=== PATIENT | male | born 1970 | race American Indian/Alaskan Native ===

== ENCOUNTER 2021-11-09 14:44 | Emergency (ER) | payer OTHER, MEDICAID, SELFPAY ==
[2021-11-09 15:30] VITALS: BP 141/80; PULSE 77; RESP 15; TEMP 36.1; O2SAT 96; BMI 25.1
[2021-11-09 20:40] VITALS: BP 135/80; PULSE 66; O2SAT 99
--- NOTE | 2021-11-09 20:53 | ED.BACK ---
HPI - Back Pain/Injury General Chief Complaint: Back Pain/Injury Stated Complaint: pinched nerve in back Time Seen by Provider: 11/09/21 20:42 Source: patient History of Present Illness HPI Narrative: Patient is a 51-year-old male with chronic ongoing pain presents with left-sided back pain worse over last 1 and half days. He says he feels like has a pinched nerve. It hurts every time he moves. He has been taking ibuprofen without much relief. He occasionally gets sharp shooting pain down his leg. He has had serous injuries in the past and had a pelvis shattered. He took some of his sisters gabapentin without much relief. He denies any painful or frequent urination. No nausea or vomiting. Related Data Previous Rx's Medication Instructions Recorded cyclobenzaprine 5 mg tablet 5 mg PO TID PRN #10 tab 11/09/21 Allergies Allergy/AdvReac Type Severity Reaction Status Date / Time No Known Drug Allergies Allergy Verified 11/09/21 15:34 Review of Systems Review of Systems Narrative: GENERAL: Denies chills, fatigue, malaise, fever, sweats, travel HEENT: Denies sinus pain, ear pain, sore throat, difficulty swallowing, neck pain RESPIRATORY: Denies dyspnea, cough, wheezing, hemoptysis, sputum. CARDIOVASCULAR: Denies chest pain, palpitations, orthopnea, edema GASTROINTESTINAL: Denies nausea, vomiting, abdominal pain, diarrhea, constipation, melena. : Denies dysuria, frequency, incontinence, hematuria, urinary retention, flank pain. MUSCULOSKELETAL: See HPI SKIN: No rash, no erythema, no pruritus NEUROLOGIC: Denies weakness, dizziness, headache, numbness, change in speech, confusion PSYCHIATRIC: No concerning psychosocial issues. 12 point review of systems is negative except for those stated above and HPI Patient History Social History Smoking Status: Current every day smoker Smoking Status: Current every day smoker alcohol intake frequency: holidays/special occasions only Substance Use Type: marijuana Exam Initial Vital Signs Initial Vital Signs: Vital Signs Temperature 97.0 F L 11/09/21 15:30 Pulse Rate 77 11/09/21 15:30 Respiratory Rate 15 11/09/21 15:30 Blood Pressure 141/80 H 11/09/21 15:30 Pulse Oximetry 96 11/09/21 15:30 GENERAL: Alert 51-year-old male appears comfortable while resting in no acute distress. HEENT: Head atraumatic,EOMI, pupils reactive, face symmetric, moist mucous membranes CARDIOVASCULAR: Regular rate and rhythm without murmurs, rubs or gallops. RESPIRATORY: Breath sounds equal bilaterally, no wheezes rales or rhonchi. ABDOMEN: Soft, nontender. Normoactive bowel sounds all 4 quadrants. No guarding or rebound. BACK: Pinpoint tenderness left side reproduces bit and palpation EXTREMITIES: Normal range of motion, no clubbing or edema. Neurovascularly intact NEUROLOGICAL: Alert and oriented x4.Normal gait and speech. SKIN: Warm, dry, no laceration, no petechiae, no rashes or lesions. Course Orders Ordered: Discontinued Medications Cyclobenzaprine HCl (Cyclobenzaprine 10 Mg Prepack) 1 bottle MISC SEEINSTR ONE Stop: 11/09/21 20:53 Last Admin: 11/09/21 21:01 Dose: 1 bottle Documented by: RIC Ketorolac Tromethamine (Ketorolac 30 Mg/Ml Vial) 30 mg IM NOW ONE Stop: 11/09/21 20:53 Last Admin: 11/09/21 21:00 Dose: 30 mg Documented by: RIC Vital Signs Vital signs: Vital Signs - 8 hr 11/09/21 20:40 11/09/21 21:19 Pulse Rate 66 63 Respiratory Rate 18 Blood Pressure 135/80 129/80 Pulse Oximetry 99 100 MDM - Back Pain/Injury MDM Narrative Medical decision making narrative: At this time pain seems to be musculoskeletal in nature. It is definitely reproducible with palpation and hurts with movement. Unlikely to be kidney stone at this time. Patient has never been to this facility in the past. He is given Toradol and muscle relaxers for pain. Discharge Plan Departure Patient Disposition: Home Clinical Impression: Strain of lumbar region Instructions: DI for Low Back Pain Activity Restrictions/Additional Instructions: *You have been diagnosed with acute on chronic back *What to do: Heating pad, light stretches *Continue to take medications as directed Motrin 800 mg every 8 hours if needed for wffm-of-zdgldnyl Flexeril 5-10 mg every 8 hours for muscle spasm *Follow up with your primary care provider in 2-3 days or call [phone] *Return to ER if you should have increasing pain, changes in bowel or bladder habits or any new, worsening or concerning symptoms Prescriptions: New cyclobenzaprine 5 mg tablet 5 mg PO TID PRN (Reason: muscle spasm) Qty: 10 0RF Stand Alone Forms: Work Release Note
[2021-11-09] MEDS: KETOROLAC 30 MG/ML VIAL IM (21:00)
[2021-11-09] MEDS: CYCLOBENZAPRINE 10 MG PREPACK 1 BOTTLE MISC (21:01)
[2021-11-09 21:19] VITALS: BP 129/80; PULSE 63; RESP 18; O2SAT 100
== END 2021-11-09 21:24 | disposition home or self-care (01) ==
PROVIDERS: Emergency Provider Emergency Medicine
DX: S39.012A Strain of muscle, fascia and tendon of lower back, initial encounter (principal); F17.200 Nicotine dependence, unspecified, uncomplicated; X58.XXXA Exposure to other specified factors, initial encounter
CPT/HCPCS: 96372; 99283; J1885

== ENCOUNTER 2021-11-13 14:01 | Emergency (ER) | payer OTHER, MEDICAID, SELFPAY ==
[2021-11-13 14:18] VITALS: BP 135/78; PULSE 69; RESP 18; TEMP 36.9; O2SAT 99
--- NOTE | 2021-11-13 18:31 | ED.BACK ---
HPI - Back Pain/Injury <KYLEE De La Torre - Last Filed: 11/16/21 13:18> General Chief Complaint: Back Pain/Injury Stated Complaint: Back Pain Getting Worse Time Seen by Provider: 11/13/21 18:01 Source: patient History of Present Illness HPI Narrative: 51-year-old male presents to the emergency department with an exacerbation of his left-sided low back pain with right-sided sciatica. Patient has a history of the same, denies any loss of bowel or bladder, denies any urinary retention symptoms. He endorses that his sciatica is worse than it has been, he was seen 4 days ago and prescribed ibuprofen and Flexeril without much relief. Patient endorses that lidocaine patches are helpful that he currently does not have any. Patient also requesting a work note. Related Data Previous Rx's Medication Instructions Recorded cyclobenzaprine 5 mg tablet 5 mg PO TID PRN #10 tab 11/09/21 cyclobenzaprine 5 mg tablet 5 mg PO Q8H PRN #20 tab 11/13/21 lidocaine 4 % topical patch 1 patch TOPICAL DAILY PRN #10 ea 11/13/21 prednisone 50 mg tablet 50 mg PO DAILY 5 Days #5 tab 11/13/21 Allergies Allergy/AdvReac Type Severity Reaction Status Date / Time No Known Drug Allergies Allergy Verified 11/09/21 15:34 Review of Systems <KYLEE De La Torre - Last Filed: 11/16/21 13:18> Review of Systems Narrative: General: denies fever, chills Head/Neck: denies headache, neck pain Eyes: denies visual changes, eye pain Cardio: denies chest pain, palpitations Respiratory: denies shortness of breath, cough GI: denies abdominal pain, nausea, vomiting, or diarrhea : denies dysuria, hematuria MSK: denies joint pain, muscle weakness Skin: denies rash, itching Neuro: denies numbness, tingling Patient History <KYLEE De La Torre - Last Filed: 11/16/21 13:18> Social History Smoking Status: Current every day smoker Smoking Status: Current every day smoker alcohol intake frequency: holidays/special occasions only Substance Use Type: marijuana Exam <KYLEE De La Torre - Last Filed: 11/16/21 13:18> Initial Vital Signs Initial Vital Signs: Vital Signs Temperature 98.5 F 11/13/21 14:18 Pulse Rate 69 11/13/21 14:18 Respiratory Rate 18 11/13/21 14:18 Blood Pressure 135/78 11/13/21 14:18 Pulse Oximetry 99 11/13/21 14:18 <Mara Okeefe DO - Last Filed: 11/17/21 07:23> Initial Vital Signs Initial Vital Signs: Vital Signs Temperature 98.5 F 11/13/21 14:18 Pulse Rate 69 11/13/21 14:18 Respiratory Rate 18 11/13/21 14:18 Blood Pressure 135/78 11/13/21 14:18 Pulse Oximetry 99 11/13/21 14:18 Course <KYLEE De La Torre - Last Filed: 11/16/21 13:18> Orders Ordered: Discontinued Medications Cyclobenzaprine HCl (Cyclobenzaprine 10 Mg Tablet) 5 mg PO NOW ONE Stop: 11/13/21 18:25 Last Admin: 11/13/21 18:37 Dose: 5 mg Documented by: ALBERTO Ketorolac Tromethamine (Ketorolac 30 Mg/Ml Vial) 15 mg IM NOW ONE Stop: 11/13/21 18:25 Last Admin: 11/13/21 18:37 Dose: 15 mg Documented by: ALBERTO Prednisone (Prednisone 20 Mg Tablet) 40 mg PO NOW ONE Stop: 11/13/21 18:25 Last Admin: 11/13/21 18:37 Dose: 40 mg Documented by: ALBERTO Vital Signs Vital signs: Vital Signs - 8 hr 11/13/21 14:18 Temperature 98.5 F Pulse Rate 69 Respiratory Rate 18 Blood Pressure 135/78 Pulse Oximetry 99 <Mara Okeefe DO - Last Filed: 11/17/21 07:23> Orders Ordered: Discontinued Medications Cyclobenzaprine HCl (Cyclobenzaprine 10 Mg Tablet) 5 mg PO NOW ONE Stop: 11/13/21 18:25 Last Admin: 11/13/21 18:37 Dose: 5 mg Documented by: ALBERTO Ketorolac Tromethamine (Ketorolac 30 Mg/Ml Vial) 15 mg IM NOW ONE Stop: 11/13/21 18:25 Last Admin: 11/13/21 18:37 Dose: 15 mg Documented by: ALBERTO Prednisone (Prednisone 20 Mg Tablet) 40 mg PO NOW ONE Stop: 11/13/21 18:25 Last Admin: 11/13/21 18:37 Dose: 40 mg Documented by: ALBERTO Vital Signs Vital signs: Vital Signs - 8 hr 11/13/21 14:18 Temperature 98.5 F Pulse Rate 69 Respiratory Rate 18 Blood Pressure 135/78 Pulse Oximetry 99 [facility] - Back Pain/Injury <KYLEE De La Torre - Last Filed: 11/16/21 13:18> [facility] Narrative Medical decision making narrative: 51-year-old male presents to the emergency department complaining of low back pain exacerbation and history of same. Symptoms are exacerbated with right leg lift in his low back. Patient recently was prescribed ibuprofen and Flexeril and his symptoms improved for a couple days he reports that helped for a little bit but now it is worse as it was before. Patient did not have any steroids. No new trauma, Multiple etiologies of back pain considered including; Epidural abscess, cauda equina, mass occupying lesion, and other considered but less likely as patient does not have any urinary retention, loss of bowel or bladder, numbness or tingling in his extremities that is ongoing. Patient has right-sided sciatica symptoms intermittently. Strict return precautions advised, patient was referred to Orthopedic Spine, understands to take his steroids, lidocaine patches, for muscle relaxers and ibuprofen as needed for his symptoms. He was given a work note. Patient is appropriate and amenable to discharge home. Vital signs are stable on repeat examination is unremarkable. Patient has been informed of results. Patient has been given strict return to ER precautions for any new or worsening symptoms. Patient understands to follow up closely with outpatient providers as instructed. Patient understands plan and agrees to discharge home. All questions and concerns answered at this time. Discharge Plan Departure Patient Disposition: Home Clinical Impression: Low back pain with right-sided sciatica Instructions: DI for Back Pain With Sciatica, DI for Back Spasm Activity Restrictions/Additional Instructions: *You have been diagnosed with left-sided low back pain with right-sided sciatica. Please follow-up with orthopedics if this is surgical problem. Please continue to take ibuprofen every 6-8 hours as needed for pain, please do not take anymore of that today. I sent some prescriptions to [facility] in [place], a getting muscle relaxer, steroids, lidocaine patches. I hope you feel better soon. If you have any loss of bowel or bladder, inability to urinate, numbness or tingling in your lower extremities please return to the emergency department. *What to do: *Please continue to take your regular medications as directed. [ x] New medication prescriptions sent to your pharmacy: [[facility] ] [ ] New medication written as a paper prescription [ ] No new medications given *Please follow up with your primary care provider in 2-3 days, call for an appointment. Let them know you were seen in the Emergency Department and that we ask that you be seen in follow up. We will electronically transmit a record of today's note if your PCP is in our system *If you do not have a primary care provider please contact the [facility] Resource line at [phone]. They will ask some questions about your medical history and help get you set up with a doctor in the community. *Return to Emergency Department if you should have any new, worsening or concerning symptoms, such as [fever greater than 101F, chills, worsening pain, persistent vomiting or other bothersome symptoms] Prescriptions: New cyclobenzaprine 5 mg tablet 5 mg PO Q8H PRN (Reason: muscle spasm) Qty: 20 0RF prednisone 50 mg tablet 50 mg PO DAILY 5 Days Qty: 5 0RF lidocaine 4 % adhesive patch,medicated 1 patch topical DAILY PRN (Reason: pain) Qty: 10 0RF No Action cyclobenzaprine 5 mg tablet 5 mg PO TID PRN (Reason: muscle spasm) Qty: 10 0RF Referrals: Tia Vivar MD [Physician] - 7-10 days Stand Alone Forms: Work Release Note <Mara Okeefe DO - Last Filed: 11/17/21 07:23> Cosign ED Attending Nunuature Attestation: I was immediately available in the department for consultation. Documentation has been reviewed. No physical exam is noted provider was notified.
[2021-11-13] MEDS: CYCLOBENZAPRINE 10 MG TABLET 5 MG PO (18:37)
[2021-11-13] MEDS: KETOROLAC 30 MG/ML VIAL 15 MG IM (18:37)
[2021-11-13] MEDS: predniSONE 20 MG TABLET 40 MG PO (18:37)
--- NOTE | 2021-11-14 11:56 | PC.NURSE ---
pt called back. pt states he needs his scripts at [facility] not [facility]. called [facility] and cancelled and provided script to [facility].
== END 2021-11-13 18:47 | disposition home or self-care (01) ==
PROVIDERS: Emergency Provider Nurse Practitioner Critical Care Medicine
DX: M54.41 Lumbago with sciatica, right side (principal); F17.200 Nicotine dependence, unspecified, uncomplicated
CPT/HCPCS: 96372; 99283; J1885